=== PATIENT | male | born 1970 | race African-American/Black ===

== ENCOUNTER 2017-02-22 06:51 | Emergency (ER) | payer OTHER ==
[2017-02-22] MEDS ORDERED: Ketorolac 30 MG/ML SDV IM ONE (07:24)
--- NOTE | 2017-02-22 07:24 | EDM.PDOC ---
ED HPI GENERAL MEDICAL PROBLEM - General Chief Complaint: General Stated Complaint: RIGHT SIDE PAIN- POSS SAME PAST W/COMP INJURY Time Seen by Provider: 02/22/17 07:02 - History of Present Illness INITIAL COMMENTS - FREE TEXT/NARRATIVE: HISTORY AND PHYSICAL: History of present illness: Is a 46-year-old male with chronic history of left lower back muscle pain. Patient presents for his WSI form to be filled out. Aside from this muscle pain issue, he denies any constipation/diarrhea/nausea/vomiting/shortness of breath/ chest pain/fever. He denies any back pain, numbness or tingling. Denies any bowel/bladder issues. Review of systems: As per history of present illness and below otherwise all systems reviewed and negative. Past medical history: As per history of present illness and as reviewed below otherwise noncontributory. Surgical history: As per history of present illness and as reviewed below otherwise noncontributory. Social history: No reported history of drug or alcohol abuse. Family history: As per history of present illness and as reviewed below otherwise noncontributory. Physical exam: HEENT: Atraumatic, normocephalic, pupils reactive, negative for conjunctival pallor or scleral icterus, mucous membranes moist, throat clear, neck supple, nontender, trachea midline. Lungs: Clear to auscultation, breath sounds equal bilaterally, chest nontender. Heart: S1S2, regular, negative for clicks, rubs, or JVD. Abdomen: Soft, nondistended, nontender. Negative for masses or hepatosplenomegaly. Negative for costovertebral tenderness. Pelvis: Stable nontender. Genitourinary: Deferred. Rectal: Deferred. Extremities: Atraumatic, negative for cords or calf pain. Neurovascular unremarkable. Neuro: Awake, alert, oriented. Cranial nerves II through XII unremarkable. Cerebellum unremarkable. Motor and sensory unremarkable throughout. Exam nonfocal. Diagnostics: none Therapeutics: 30mg IM Toradol Impression: Repetitive injury lower back Plan: Discharge home. Patient was advised to follow up with his primary care physician. WSI form to be filled out by the patient and returned to his employer. Left Side Pain Score (Numeric/FACES): 9 - Related Data Allergies Allergy/AdvReac Type Severity Reaction Status Date / Time No Known Allergies Allergy Verified 02/22/17 07:16 Home Meds: Home Meds Cyclobenzaprine [Flexeril] 10 mg PO TID 02/22/17 [History] Diclofenac Sodium [Voltaren] 50 mg PO ASDIRECTED 02/22/17 [History] Past Medical History - Past Health History Medical/Surgical History: Denies Medical/Surgical History Musculoskeletal History: Reports: Other (See Below) Other Musculoskeletal History: pst muscle tear on L side Social & Family History - Tobacco Use Smoking Status *Q: Never Smoker Second Hand Smoke Exposure: No - Caffeine Use Caffeine Use: Reports: None - Recreational Drug Use Recreational Drug Use: No ED ROS GENERAL - Review of Systems Review Of Systems: See Below (see dictation) ED EXAM, GENERAL - Physical Exam Exam: See Below (see dictation) Course - Vital Signs Last Recorded V/S: Last Vital Signs Temp 37.1 C 02/22/17 07:18 Pulse 88 02/22/17 07:18 Resp 18 02/22/17 07:18 BP 131/97 H 02/22/17 07:18 Pulse Ox 97 02/22/17 07:18 - Orders/Labs/Meds Meds: Medications Discontinued Medications Generic Name Dose Route Start Last Admin Trade Name Praveen PRN Reason Stop Dose Admin Ketorolac Tromethamine 30 mg 02/22/17 07:24 02/22/17 07:35 Toradol IM 02/22/17 07:25 30 mg ONETIME ONE Administration Departure - Departure Time of Disposition: 07:50 Disposition: Home, Self-Care 01 Condition: Good Clinical Impression: Repetition strain injury - Discharge Information Referrals: PCP,None [Primary Care Provider] - Forms: ED Department Discharge Additional Instructions: The following information is given to patients seen in the emergency department who are being discharged to home. This information is to outline your options for follow-up care. We provide all patients seen in our emergency department with a follow-up referral. The need for follow-up, as well as the timing and circumstances, are variable depending upon the specifics of your emergency department visit. If you don't have a primary care physician on staff, we will provide you with a referral. We always advise you to contact your personal physician following an emergency department visit to inform them of the circumstance of the visit and for follow-up with them and/or the need for any referrals to a consulting specialist. The emergency department will also refer you to a specialist when appropriate. This referral assures that you have the opportunity for follow-up care with a specialist. All of these measure are taken in an effort to provide you with optimal care, which includes your follow-up. Under all circumstances we always encourage you to contact your private physician who remains a resource for coordinating your care. When calling for follow-up care, please make the office aware that this follow-up is from your recent emergency room visit. If for any reason you are refused follow-up, please contact the [facility] Emergency Department at and asked to speak to the emergency department charge nurse. Please fill out your WSI form and return to your employer. Please be sure to follow up with occupational health, and your primary care provider. Occupational Health: [phone] [facility] Provider: [phone]
[2017-02-22 08:41] VITALS: BP 124/74
== END 2017-02-22 08:01 | disposition home or self-care (01) ==
LOC: MW.ED 06:51
DX: S39.012A Strain of muscle, fascia and tendon of lower back, initial encounter (principal); X50.3XXA Overexertion from repetitive movements, initial encounter
CPT/HCPCS: 96372; 99282; J1885